=== PATIENT | female | born 1980 | race Hispanic/Latino ===

== ENCOUNTER 2021-11-23 09:40 | Inpatient (IN) | payer BC, SELFPAY ==
[2021-11-23] MEDS ORDERED: Ondansetron PF 4 MG/2 ML Vial IVP PRN (10:16)
[2021-11-23] MEDS ORDERED: Acetaminophen 500 MG TAB PO PRN (10:16)
[2021-11-23] MEDS ORDERED: Promethazine HCl 25 MG/ML VIAL IM PRN (10:16)
[2021-11-23] MEDS ORDERED: hydrALAZINE 20 MG/ML VIAL SLOW IVP PRN (10:16)
[2021-11-23] MEDS ORDERED: Butorphanol Tartrate 1 MG/ML VIAL SLOW IVP PRN (10:16)
[2021-11-23] MEDS ORDERED: Lidocaine 1% (PF) 30 ML VIAL SC PRN (10:16)
[2021-11-23] MEDS ORDERED: Zolpidem Tartrate 5 MG TAB PO PRN (10:22)
[2021-11-23] MEDS ORDERED: Docusate 100 MG CAP PO PRN (10:22)
[2021-11-23] MEDS ORDERED: NS w/ Oxytocin 30 units 500 ML IV SCH (10:30)
[2021-11-23 10:45] VITALS: BMI 30.2
[2021-11-23 10:57] LABS: Fetal Membranes Rupture RUPTURE DETECTED (No Rupture)
[2021-11-23] MEDS ORDERED: Betamet Acet/Betamet Na Ph 30 MG/5 ML VIAL ONE (11:02)
[2021-11-23] MEDS ORDERED: Azithromycin 250 MG TAB PO SCH (11:15)
[2021-11-23 11:28] LABS: ALT (SGPT) 21 U/L (8-55); AST (SGOT) 21 U/L (5-34); Albumin 3.2 g/dL (3.5-5.0); Alkaline Phosphatase 112 U/L (40-110); Anion Gap 12 mmol/L (10-20); BUN (Urea Nitrogen) 8 mg/dL (7.0-18.7); Bilirubin, Total 0.4 mg/dL (0.2-1.2); Calc. Creatinine Clearance 135 mL/min (70-130); Calcium 8.6 mg/dL (7.8-10.44); Carbon Dioxide 19 mmol/L (22-29); Chloride 109 mmol/L (98-107); Globulin 3.3 g/dL (2.4-3.5); Glucose 90 mg/dL (70-105); Potassium 3.8 mmol/L (3.5-5.1); Protein, Total 6.5 g/dL (6.0-8.3); Sodium 136 mmol/L (136-145)
[2021-11-23 11:32] LABS: Bilirubin Neg (Negative); Blood, Urine 25 (Negative); Clarity Clear (Clear); Glucose, Urine (Dipstick) Normal (Negative); Ketone, Urine 50 mg/dL (Negative); Leukocyte Negative (Negative); Nitrite Negative (Negative); Protein, Urine (Dipstick) 15 mg/dl (Neg-Trace); Specific Gravity, Urine 1.015 (1.002-1.036); Urobilinogen Normal mg/dL (Less than 2)
[2021-11-23 11:33] LABS: Urine Culture Reflex No No
[2021-11-23 11:48] LABS: Bacteria/HPF Rare-Few HPF (None Seen); RBC/HPF 0-3 HPF (0-3); Squamous Epithelial 0-3 HPF (0-3); WBC/HPF 0-3 HPF (0-3)
[2021-11-23 11:48] LABS: Hep B Surf Ag Non-Reactive S/CO (NonReactive); Syphilis Antibody Nonreactive (Nonreactive); Syphilis Antibody Index 0.06 S/CO (<1.00 Non-Reactive)
[2021-11-23 11:52] LABS: HBSAg Index 0.17 S/CO (0-0.99)
[2021-11-23] MEDS ORDERED: AMPicillin 1 GM in Sodium Chloride 0.9% 100 ML IVPB SCH (12:00)
[2021-11-23] MEDS: Ampicillin 2 GM in Sodium Chloride 0.9% 100 ML IVPB SCH ×2 (12:39→20:06)
[2021-11-23 14:23] LABS: SARS-CoV-2 NAA Rapid Test Not Detected (NotDetected)
[2021-11-23] MEDS ORDERED: Ampicillin 2 GM in Sodium Chloride 0.9% 100 ML IVPB SCH (18:00)
[2021-11-23] MEDS ORDERED: Dextrose 50% Abboject 50 ML SYRINGE SLOW IVP PRN (22:13)
[2021-11-23] MEDS ORDERED: Dextrose 5% in Water 1,000 ML IV PRN (22:13)
[2021-11-23] MEDS: TERCONAZOLE 0.8% VAG SCH (23:08)
[2021-11-23] MEDS ORDERED: AMPicillin 2 GM in Sodium Chloride 0.9% 100 ML IVPB SCH (23:59)
[2021-11-24] MEDS: Ampicillin 2 GM in Sodium Chloride 0.9% 100 ML IVPB SCH ×4 (02:33→23:09)
[2021-11-24] MEDS: Prenatal Vitamin 1 TAB PO SCH (08:36)
[2021-11-24] MEDS: Betamet Acet/Betamet Na Ph 30 MG/5 ML VIAL IM SCH (10:23)
[2021-11-24] MEDS: Insulin Regular 300 UNITS/3 ML VIAL SC PRN ×3 (11:07→19:32)
[2021-11-24] MEDS: TERCONAZOLE 0.8% VAG SCH (23:14)
[2021-11-25] MEDS: Ampicillin 2 GM in Sodium Chloride 0.9% 100 ML IVPB SCH ×3 (05:11→17:34)
[2021-11-25] MEDS: Lactated Ringer's 1,000 ML IV SCH ×2 (05:12→23:27)
[2021-11-25] MEDS: Insulin Regular 300 UNITS/3 ML VIAL SC PRN ×2 (11:02→19:42)
[2021-11-25] MEDS: Prenatal Vitamin 1 TAB PO SCH (11:09)
[2021-11-25] MEDS ORDERED: AMOXicillin 250 MG CAP PO SCH (12:00)
[2021-11-25] MEDS ORDERED: Ampicillin 2 GM VIAL ONE (16:45)
[2021-11-25] MEDS: AMOXicillin 250 MG CAP PO SCH (21:02)
[2021-11-25] MEDS: TERCONAZOLE 0.8% VAG SCH (21:34)
[2021-11-26] MEDS: Prenatal Vitamin 1 TAB PO SCH (09:00)
[2021-11-26] MEDS: AMOXicillin 250 MG CAP PO SCH ×3 (09:00→21:03)
[2021-11-26] MEDS: Lactated Ringer's 1,000 ML IV SCH ×2 (19:20→19:21)
[2021-11-26] MEDS: Betamet Acet/Betamet Na Ph 30 MG/5 ML VIAL IM SCH (19:20)
[2021-11-26] MEDS: TERCONAZOLE 0.8% VAG SCH (21:13)
[2021-11-27] MEDS: Lactated Ringer's 1,000 ML IV SCH (03:37)
[2021-11-27] MEDS ORDERED: Acetaminophen 500 MG TAB PO SCH (12:15)
[2021-11-27] MEDS: Prenatal Vitamin 1 TAB PO SCH (13:49)
[2021-11-27] MEDS: AMOXicillin 250 MG CAP PO SCH ×2 (13:50→22:06)
[2021-11-28] MEDS: AMOXicillin 250 MG CAP PO SCH ×3 (08:56→21:34)
[2021-11-28] MEDS: Prenatal Vitamin 1 TAB PO SCH (08:56)
[2021-11-29] MEDS: AMOXicillin 250 MG CAP PO SCH ×4 (09:11→20:52)
[2021-11-29] MEDS: Prenatal Vitamin 1 TAB PO SCH (09:11)
[2021-11-29] MEDS: Insulin Regular 300 UNITS/3 ML VIAL SC PRN (11:22)
[2021-11-30] MEDS: Lactated Ringer's 1,000 ML IV SCH ×4 (01:13→15:14)
[2021-11-30] MEDS: Prenatal Vitamin 1 TAB PO SCH (08:50)
[2021-11-30] MEDS: AMOXicillin 250 MG CAP PO SCH ×3 (08:50→20:51)
[2021-11-30 09:39] LABS: #Eosinphils 0.1 10x3/uL (0.0-0.5); #Monocytes 0.3 10x3/uL (0.0-1.1); #Neutrophils 3.4 10x3/uL (1.5-8.4); %Basophils 0.5 % (0.0-2.0); %Lymphocytes 30.9 % (18.0-47.0); %Monocytes 5.2 % (0.0-10.0); %Neutrophils 60.3 % (40.0-75.0); Hemoglobin 13.1 g/dL (12.0-15.5); Mean Corpuscular HGB CONC 34.7 g/dL (32.0-36.0); Mean Corpuscular Hemoglobin 30.6 pg (27.0-33.0); Mean Corpuscular Volume 88.1 fl (81.6-98.3); Platelet Count 124 10x3/uL (150-450); RBC Distribution Width 13.6 % (11.5-14.5); Red Blood Cell (RBC) Count 4.28 10x6/uL (3.90-5.03); White Blood Cell (WBC) Count 5.6 10x3/uL (3.5-10.5)
[2021-11-30 16:13] LABS: SARS-CoV-2 NAA Rapid Test Not Detected (NotDetected)
[2021-11-30] MEDS ORDERED: Famotidine/PF 20 mg/2ml Vial SLOW IVP PRN (21:47)
[2021-11-30] MEDS ORDERED: Bicitra 30 ML UDCUP PO PRN (21:47)
[2021-11-30] MEDS ORDERED: CEFAZOLIN 2 GM in Premix Bag 1 BAG IVPB SCH (22:00)
[2021-11-30] MEDS ORDERED: Azithromycin 500 MG in Sodium Chloride 0.9% 250 ML 250 ML IVPB SCH (22:00)
[2021-12-01] MEDS ORDERED: Lactated Ringer's 1,000 ML IV SCH
[2021-12-01] MEDS ORDERED: Oxytocin 10 UNITS/ML VIAL ONE ×2 (07:09→08:36)
[2021-12-01] MEDS ORDERED: Phenylephrine 40 MG/NS 250 ML 250 ML ONE (07:09)
[2021-12-01] MEDS ORDERED: Morphine PF 10 MG/10 ML VIAL ONE (07:09)
[2021-12-01] MEDS ORDERED: Midazolam HCl 2 mg/2 ml Vial ONE (08:11)
[2021-12-01] MEDS ORDERED: Ondansetron PF 4 MG/2 ML Vial ONE (08:15)
[2021-12-01] MEDS ORDERED: Ketorolac Tromethamine 30 MG/ML VIAL ONE (08:15)
[2021-12-01] MEDS ORDERED: Ondansetron HCl/PF 4 MG/2 ML Vial IVP PRN (08:45)
[2021-12-01] MEDS ORDERED: Ondansetron PF 4 MG/2 ML Vial IVP PRN ×2 (08:45→11:08)
[2021-12-01] MEDS ORDERED: Hydrocerin (Eucerin) Cream 120 gm Jar TOP PRN (08:45)
[2021-12-01] MEDS ORDERED: Communication Order-Pharmacy FS SCH (08:45)
[2021-12-01] MEDS ORDERED: diphenhydrAMINE 50 MG/ML VIAL IVP PRN (08:45)
[2021-12-01] MEDS ORDERED: Meperidine HCl/PF 25 MG/ML VIAL SLOW IVP PRN (08:45)
[2021-12-01] MEDS ORDERED: Ketorolac Tromethamine 30 MG/ML VIAL IVP PRN (08:45)
[2021-12-01] MEDS ORDERED: HYDROmorphone 2 MG/ML VIAL SLOW IVP PRN (08:45)
[2021-12-01] MEDS ORDERED: Promethazine HCl 25 MG/ML VIAL IM PRN ×2 (08:45→11:08)
[2021-12-01] MEDS ORDERED: Promethazine HCl 25 MG SUPP PR PRN (08:45)
[2021-12-01] MEDS ORDERED: Naloxone HCl 0.4 mg/ml Vial IV PRN (08:45)
[2021-12-01] MEDS ORDERED: Ketorolac Tromethamine 30 MG/ML VIAL IVP SCH (08:45)
[2021-12-01] MEDS ORDERED: Naloxone HCl 0.4 mg/ml Vial IVP PRN ×2 (08:45)
[2021-12-01] MEDS ORDERED: Fentanyl 100 MCG/2 ML VIAL SLOW IVP PRN (08:45)
[2021-12-01] MEDS ORDERED: Bisacodyl 10 MG SUPP PR PRN (11:08)
[2021-12-01] MEDS ORDERED: diphenhydrAMINE 25 MG CAP PO PRN (11:08)
[2021-12-01] MEDS ORDERED: Lanolin Ointment 7 GM TUBE TOP PRN (11:08)
[2021-12-01] MEDS ORDERED: Acetaminophen 325 MG TAB PO PRN (11:08)
[2021-12-01] MEDS ORDERED: hydrALAZINE 20 MG/ML VIAL SLOW IVP PRN (11:08)
[2021-12-01] MEDS ORDERED: Simethicone Chewable 80 MG TAB PO PRN (11:08)
[2021-12-01] MEDS ORDERED: Prenatal Vitamin 1 TAB PO SCH (12:00)
[2021-12-01] MEDS ORDERED: Ferrous Sulfate 325 MG TAB PO SCH (12:00)
[2021-12-01] MEDS ORDERED: Docusate 100 MG CAP PO SCH (12:00)
[2021-12-01] MEDS: Prenatal Vitamin 1 TAB PO SCH (14:51)
[2021-12-01] MEDS ORDERED: Zolpidem Tartrate 5 MG TAB PO PRN (20:45)
[2021-12-01] MEDS ORDERED: HYDROcodone/Acetaminophen 5/325 mg Tablet PO PRN (20:45)
[2021-12-01] MEDS: Ferrous Sulfate 325 MG TAB PO SCH (21:18)
[2021-12-01] MEDS: Docusate 100 MG CAP PO SCH (21:18)
[2021-12-01] MEDS: HYDROcodone/Acetaminophen 5/325 mg Tablet PO PRN (21:21)
[2021-12-02] MEDS: HYDROcodone/Acetaminophen 5/325 mg Tablet PO PRN ×2 (05:02→14:19)
[2021-12-02 05:16] LABS: Hemoglobin 12.6 g/dL (12.0-15.5); Mean Corpuscular HGB CONC 34.1 g/dL (32.0-36.0); Mean Corpuscular Hemoglobin 30.1 pg (27.0-33.0); Mean Corpuscular Volume 88.3 fl (81.6-98.3); Mean Platelet Volume 12.2 fl (7.4-10.4); Platelet Count 121 10x3/uL (150-450); RBC Distribution Width 13.1 % (11.5-14.5); Red Blood Cell (RBC) Count 4.18 10x6/uL (3.90-5.03); White Blood Cell (WBC) Count 8.9 10x3/uL (3.5-10.5)
[2021-12-02] MEDS: Ferrous Sulfate 325 MG TAB PO SCH ×2 (09:57→21:14)
[2021-12-02] MEDS ORDERED: Boostrix 0.5 ML (Tdap) VIAL IM ONE (11:08)
[2021-12-02] MEDS: Prenatal Vitamin 1 TAB PO SCH (14:54)
[2021-12-02] MEDS: Docusate 100 MG CAP PO SCH ×2 (14:54→21:14)
[2021-12-02] MEDS ORDERED: Ibuprofen 800 MG TAB PO SCH (15:00)
[2021-12-02] MEDS: Ibuprofen 800 MG TAB PO SCH (21:15)
[2021-12-03] MEDS: Ibuprofen 800 MG TAB PO SCH (05:23)
[2021-12-03 08:09] VITALS: BP 135/71; TEMP 98.1
[2021-12-03] MEDS: Prenatal Vitamin 1 TAB PO SCH (09:52)
[2021-12-03] MEDS: Docusate 100 MG CAP PO SCH (09:52)
[2021-12-03] MEDS: Ferrous Sulfate 325 MG TAB PO SCH (09:57)
== END 2021-12-03 12:40 | disposition home or self-care (01) | DRG 786 ==
LOC: CSHLD 09:40 → CSHPP 12-01 12:03
PROVIDERS: ADMIT Student in an Organized Health Care Education/Training Program; ATTEND Student in an Organized Health Care Education/Training Program
PROC: 10D00Z1 Extraction of Products of Conception, Low, Open Approach (ICD-10-PCS; principal; 2021-12-01)
DX: O32.1XX0 Maternal care for breech presentation, not applicable or unspecified (principal); O60.14X0 Preterm labor third trimester with preterm delivery third trimester, not applicable or unspecified; O99.12 Other diseases of the blood and blood-forming organs and certain disorders involving the immune mechanism complicating childbirth; O42.013 Preterm premature rupture of membranes, onset of labor within 24 hours of rupture, third trimester; O24.420 Gestational diabetes mellitus in childbirth, diet controlled; D69.6 Thrombocytopenia, unspecified; Z37.0 Single live birth; O76 Abnormality in fetal heart rate and rhythm complicating labor and delivery; T38.0X5A Adverse effect of glucocorticoids and synthetic analogues, initial encounter; Z3A.34 34 weeks gestation of pregnancy; Z20.822 Contact with and (suspected) exposure to COVID-19
CPT/HCPCS: 36415; 36416; 51701; 51702; 80053; 81001; 84112; 85025; 85027; 86780; 86850; 86900; 86901; 87081; 87340; 87480; 87510; 87660; J0290; J0690; J0702; J1815; J1885; J2250; J2274; J2405; J2550; J2590; J3490; J7120; U0002